=== PATIENT | male | born 1970 | race Caucasian/White ===

== ENCOUNTER 2024-04-19 00:49 | Outpatient (CLI) | payer BC, SELFPAY ==
[2024-04-19 12:47] LABS: ALT 44 U/L (16-63); AST 34 U/L (15-37); Albumin 4.1 g/dL (3.4-5.0); Alkaline Phosphatase 76 U/L (46-116); Anion Gap 8.8 mmol/L (3-11); BUN 15 mg/dL (7-18); Bilirubin, Total 0.4 mg/dL (0.2-1.0); CO2 27.2 mmol/L (21.0-32.0); Calcium 9.1 mg/dL (8.5-10.1); Calculated LDL 90 mg/dL (<100); Chloride 100 mmol/L (98-107); Cholesterol 164 mg/dL (<200); Glucose 105 mg/dL (74-106); HDL Cholesterol 64 mg/dL (40-60); Potassium 4.5 mmol/L (3.5-5.1); Sodium 136 mmol/L (136-145); Total Protein 7.6 g/dL (6.4-8.2); Triglyceride 52 mg/dL (<150)
[2024-04-19 23:34] LABS: HIV-1/2 Ag & Ab Screen Negative (Negative)
[2024-04-20 09:40] LABS: Hepatitis C Ab w Rflx HCV PCR Negative (Negative)
== END 2024-04-19 00:50 | disposition home or self-care (01) ==
LOC: LBO 00:49
PROVIDERS: PCP Nurse Practitioner Family; Visit Provider Nurse Practitioner Family
DX: Z13.220 Encounter for screening for lipoid disorders (principal); Z11.4 Encounter for screening for human immunodeficiency virus [HIV]; Z11.59 Encounter for screening for other viral diseases
CPT/HCPCS: 80053; 80061; 86803; 87389

== ENCOUNTER 2024-07-16 09:33 | Day surgery (SDC) | payer BC, SELFPAY ==
[2024-07-16 09:54] VITALS: BP 120/77; PULSE 66; RESP 16; TEMP 36.3; O2SAT 97
[2024-07-16] MEDS: Lactated Ringers 1,000 ML 80 ML IV (10:05)
--- NOTE | 2024-07-16 11:00 | W.COLOREPORT ---
Date of service: 07/16/24 Time of Service: 11:00 Colonoscopy Report Procedure Description: PROCEDURES PERFORMED: 1. Colonoscopy with cold forceps polypectomy PREOPERATIVE DIAGNOSIS: Surveillance colonoscopy POSTOPERATIVE DIAGNOSIS: Colon polyp, grade 1 internal hemorrhoids SURGEON: Russel Nassar MD INDICATION for procedure: The patient is a 54-year-old man due for his first screening colonoscopy. No family history of colon cancer. No previous colonoscopy. No symptoms. FINDINGS: The terminal ileum was normal. A small polyp, 2-3 mm in size was removed from the transverse colon. No obvious diverticular disease. Minimal grade 1 internal hemorrhoids present. SURVEILLANCE interval/FOLLOW-UP: 3 - 10 years. If sessile serrate or villous histology, then in 3 years. Otherwise, 7-10 year followup is acceptable. SPECIMENS: yes EBL: Minimal COMPLICATIONS: None QUALITY of prep: Excellent Procedure in detail: The patient gave written consent and was in agreement with the indications, the potential risks as well as the benefits of the procedure. They were taken to the endoscopy suite and laid in the left lateral decubitus position. A timeout was performed and anesthesia was administered which was tolerated well. I started the procedure. Digital rectal and visual examination was performed and grossly within normal limits. A well-lubricated flexible colonoscope was then introduced and passed without any notable difficulty all the way to the cecum identified by the ileocecal valve and the appendiceal orifice. The terminal ileum was briefly intubated and appeared normal. The scope was then slowly withdrawn with the above-noted findings. The patient tolerated the procedure well and was taken to the PACU in hemodynamically stable condition.
--- NOTE | 2024-07-16 11:00 | W.PM.DSUDISC ---
Date of service: 07/16/24 Time of Service: 11:00 Discharge Plan Disposition Patient Disposition: Home Condition: Good Discharge Details Attending Provider: Ze Nassar Primary Care Provider: Deyvi Jonas Home Meds and New Rx's Prescriptions: No Action polyethylene glycol 3350 17 gram/dose powder 238 g PO ONCE Qty: 238 0RF Rx Instructions: take per colonoscopy instructions bisacodyl [Dulcolax (bisacodyl)] 5 mg tablet,delayed release (DR/EC) 5 mg PO ONCE Qty: 4 0RF Rx Instructions: take per colonoscopy instructions multivitamin Tablet 1 tab PO DAILY creatine monohydrate 5,000 mg powder in packet PO Discharge Instructions Additional Instructions: FINDINGS: A small polyp was found and removed today. It is nothing to worry about. This is why we do the colonoscopies. It will get tested in the lab and you will get called with those results in 1-2 weeks. Those results dictate when your next colonoscopy should be done. Mild hemorrhoid disease was found today. This is extremely common, benign and nothing needs to be done about it. Stand Alone Forms: Colonoscopy Post Instructions Activity:: Activity as Tolerated Diet:: As Tolerated
[2024-07-16 11:10] VITALS: BMI 37.5
--- NOTE | 2024-07-16 11:10 | W.ANESPRE ---
General Info Date of Service Date Performed: 07/16/24 Height: 5 ft Weight: 87.2 kg Body Mass Index (BMI): 37.5 Surgical Procedure: Operation Date: 07/16/24 10:50 Proposed Procedure Side Surgeon p Colonoscopy Ze Nassar MD Meds Allergies and Home Medications Allergies Allergy/AdvReac Type Severity Reaction Status Date / Time grass pollen Allergy Mild congestion Verified 07/16/24 09:53 ragweed pollen Allergy Mild congestion Verified 07/16/24 09:53 Home Medication ?Medication ?Instructions ?Recorded creatine monohydrate 5,000 mg oral mg PO 03/16/24 powder packet multivitamin 1 tab PO DAILY 03/16/24 bisacodyl 5 mg tablet,delayed 5 mg PO ONCE colonscopy bowel prep 06/26/24 release (Dulcolax (bisacodyl)) #4 tabs polyethylene glycol 3350 17 238 g PO ONCE colonoscopy prep 06/26/24 gram/dose oral powder #238 grams Current Visit Medications: Current Medications Generic Name Dose Route Start Last Admin Trade Name Nikki PRN Reason Stop Dose Admin Ringer's Solution 1,000 mls @ 80 mls/hr 07/16/24 06:00 07/16/24 10:05 IV 08/12/24 23:59 80 mls/hr INFUSION PERRY Administration IV Miscellaneous Supplies 1 each 07/16/24 06:00 Iv Access IV 08/12/24 23:59 DIRECTED PERRY Sodium Chloride 0 ml 07/16/24 06:00 Normal Saline Flush 10 Ml Syr IV 08/12/24 23:59 PRN PRN Sodium Chloride 0 ml 07/16/24 06:00 Normal Saline 10 Ml Vial IJ 08/12/24 23:59 DIRECTED PRN Sterile Water 0 ml 07/16/24 06:00 Water,Injection,Sterile 10 Ml Vial IJ 08/12/24 23:59 DIRECTED PRN PFSH Active Problems Active Problems: Problem Status Onset Code Pes planus of both feet Acute M21.41, M21.42 Medical History Medical History Asbestos exposure Skin cancer Surgical History Surgical History [place] teeth extracted Tobacco Smoking/Tobacco Use Status: Never Passive smoking exposure: Yes Second hand exposure: Yes Alcohol Alcohol Intake: current Alcohol intake frequency: a few times a month Alcohol type: beer, wine and hard liquor Substance Use Substance use: Never Substance use type: does not use Vital Signs and Lab Results Vital Signs Most Recent Vital Signs in EMR: Most Recent Vital Signs Temp Pulse Resp BP Pulse Ox 36.3 C L 66 16 120/77 97 07/16/24 09:54 07/16/24 09:54 07/16/24 09:54 07/16/24 09:54 07/16/24 09:54 Lab Results Blood Type / Crossmatch: No Data to Display Complete Blood Count: No Data to Display Complete Metabolic Panel: No Data to Display Liver Function Panel: No Data to Display Coagulation Panel: No Data to Display Cardiac Panel: No Data to Display Arterial Blood Gas: No Data to Display Venous Blood Gas: No Data to Display Pancreas Panel: No Data to Display Thyroid Panel: No Data to Display Infectious Disease: No Data to Display Blood Cultures: No Data to Display Toxicology Panel: No Data to Display Anesthesia Assessment and Plan Anesthesia History Personal History: No History of Anesthesia Complications Family History: No Family History of Anesthesia Complications Exercise Tolerance Exercise Tolerance: Metabolic Equivalents>4 Pertinent Negatives Pertinent Negatives: No Symptoms of GERD, No Major Cardiovascular Symptoms or Complaints and No Major Pulmonary Symptoms or Complaints Cardiac & Pulmonary Exam Cardiac Exam: Normal S1/S2 Heart Sounds Pulmonary Exam: Clear Bilateral Breath Sounds Implantable Cardiac Device Does patient have a Pacemaker or an ICD?: No Airway Exam Known Difficult Airway: No Mallampati Class: 3 Mouth Opening: Normal (> 3cm) Thyromental Distance: Greater than 3 cm Facial Hair: Full [place] Neck Range of Motion: Full ROM Neck Circumference: Thick Teeth Condition: Normal Dentition ASA Classification ASA Score: ASA 2 Emergency Case?: No NPO Status NPO Status: NPO Clears >2 hours, Solids >8 hours Anesthesia Plan Resuscitation Status: Full Code Anesthesia Technique: General Anesthesia Airway Planned: Natural Airway Monitors Used: Standard Monitors
--- NOTE | 2024-07-16 11:33 | BOWEL_PTH ---
PATIENT: Ryan Amanda LOC: [facility] U#:[id number] AGE/SX: 54/M ROOM: RE07/16/[address]: Ze Nassar : 1970 BED: DIS: 07/16/2024 SPEC #: [id number] RECD: 07/16/24 13:02 STATUS: [facility] #: [id number] [place]: 07/16/24 11:[address]: Ze Nassar DEPT: Surgical Specimen RECD BY: Birgit Pruett ENTERED: 07/16/24 13:03 SP TYPE: Bowel OTHR DR: Deyvi Eason DNP Tissues: 1 - BIOPSY BOWEL Procedures: GROSS AND MICRO LEVEL 4 Comments: [id number]
[2024-07-16 11:41] VITALS: BP 102/69; PULSE 77; RESP 16; TEMP 36.4; O2SAT 99
--- NOTE | 2024-07-16 11:51 | W.ANESPOSTOP ---
Postoperative Evaluation Date, Time and Location Date Performed: 07/16/24 Time Performed: 11:50 Patient Location: Day Surgery Unit Vital Signs Most Recent Imported Vital Signs: Most Recent Vital Signs Temp Pulse Resp BP Pulse Ox 36.3 C L 66 16 120/77 97 07/16/24 09:54 07/16/24 09:54 07/16/24 09:54 07/16/24 09:54 07/16/24 09:54 Pain Score Most Recent Pain Score: Most Recent Pain Score Pain Level 0 07/16/24 09:54 Assessment Mental Status: Awake (Alert & Oriented to Patient Baseline) Airway and Respiratory Function: Patent airway with normal (patient baseline) respiratory exam Cardiovascular Function: Hemodynamically Stable Hydration Status: Adequately Hydrated Nausea & Vomiting: No Nausea or Vomiting Pain: Pt. Denies Any Pain Peripheral Nerve Block: Patient did not receive a nerve block
[2024-07-16 12:12] VITALS: BP 99/71; PULSE 59; RESP 16; TEMP 36.4; O2SAT 97
== END 2024-07-16 12:53 | disposition home or self-care (01) ==
PROVIDERS: PCP Nurse Practitioner Family; Visit Provider Student in an Organized Health Care Education/Training Program
PROC: 0DJD8ZZ Inspection of Lower Intestinal Tract, Via Natural or Artificial Opening Endoscopic (ICD-10-PCS; CPT 45378; principal; 2024-07-16 10:45)
DX: Z12.11 Encounter for screening for malignant neoplasm of colon (principal); D12.3 Benign neoplasm of transverse colon; K64.0 First degree hemorrhoids
CPT/HCPCS: 45380; 00123; 88305; J2001; J2704

== ENCOUNTER 2025-04-17 05:01 | Outpatient (CLI) | payer OTHER, SELFPAY ==
[2025-04-23 16:21] LABS: Apolipoprotein B, Serum 71 mg/dL; Beta VLDL Cholesterol Not Detected mg/dL (<15); Beta VLDL Triglycerides Not Detected mg/dL (<15); Cholesterol, Total, CDC 165 mg/dL; Chylomicron Cholesterol Not Detected; Chylomicron Triglycerides Not Detected; HDL Cholesterol, CDC 52 mg/dL (>=40); LDL Cholesterol 79 mg/dL; LDL Triglycerides 22 mg/dL (<=50); Lp(a) Cholesterol 21 mg/dL (<5); LpX Not detected; Triglycerides, CDC 59 mg/dL; VLDL Cholesterol 13 mg/dL (<30); VLDL Triglycerides 22 mg/dL (<120)
== END 2025-04-17 05:02 | disposition home or self-care (01) ==
LOC: LBO 05:01
PROVIDERS: PCP Nurse Practitioner Family; Visit Provider Nurse Practitioner Family
DX: Z82.49 Family history of ischemic heart disease and other diseases of the circulatory system (principal); Z13.6 Encounter for screening for cardiovascular disorders
CPT/HCPCS: 36415; 80061; 82172; 82664

== ENCOUNTER 2025-04-17 14:42 | Outpatient (CLI) | payer OTHER, SELFPAY ==
--- NOTE | 2025-04-17 14:45 | DI.RAD_ITS ---
Exam(s) XR SHOULDER RT COMPLETE 2+V EXAM: XR SHOULDER RT COMPLETE 2+V CLINICAL HISTORY: RIGHT SHOULDER PAIN. TECHNIQUE: 2D digital imaging was performed of the right shoulder. Two images were obtained. Grash ey and axillary views were obtained. COMPARISON: No exams were available for comparison FINDINGS: BONES: No acute fracture is present. No bony destructive lesion is seen. JOINTS: No dislocation present. There are degenerative changes seen at the glenohumeral joint charact erized by joint space narrowing and osteophytes. The acromioclavicular joint appears well maintained . SOFT TISSUE: Normal. 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 DATA REPOSITORY: RADIATION DOSE DELIVERED:
== END 2025-04-17 14:43 | disposition home or self-care (01) ==
LOC: DIORS 14:43
PROVIDERS: PCP Nurse Practitioner Family; Referring Provider Nurse Practitioner Family; Visit Provider Student in an Organized Health Care Education/Training Program
DX: S43.431A Superior glenoid labrum lesion of right shoulder, initial encounter (principal); M19.112 Post-traumatic osteoarthritis, left shoulder
CPT/HCPCS: 73030

== ENCOUNTER 2025-05-08 02:30 | Outpatient (CLI) | payer OTHER, SELFPAY ==
--- NOTE | 2025-05-08 07:45 | DI.MRI_ITS ---
Exam(s) MR UPPER JOINT RT WO EXAM: MR UPPER JOINT RT WO CLINICAL HISTORY: R SHOULDER PAIN,SLAP TEAR,[id number] TECHNIQUE: Multiplanar multisequence MRI of the shoulder was performed. COMPARISON: CR XR SHOULDER RT COMPLETE 2+V from 04/17/2025 FINDINGS: MARROW:There is no evidence of fracture, Hill-Sachs deformity, nor ominous osseous lesions. GLENOHUMERAL JOINT: There are degenerative changes in glenohumeral joint with moderate loss of articular cartilage and small posing osteophytes on the inferior articular surfaces of the humeral head and osseous glenoid and there are multiple subarticular degenerative cysts in the lower half of the osseous glenoid. There are no degenerative subarticular cysts in the humeral head. There is no prominent joint effusion nor obvious loose intra-articular bodies. ROTATOR CUFF MECHANISM: AC JOINT/ACROMIUM: There are moderate degenerative changes in the AC joint. There is hypertrophied under surface tissue. Also mild bone edema on both sides of this articulation.. There is no evidence of os acromiale. Supraspinatus: Some tendinitis signal. No full-thickness tear. No muscle atrophy. Infraspinatus: Mild insertional tendinitis. No high-grade tear. No muscle atrophy. Teres Minor: Intact. No evidence of tear nor muscle atrophy. Subscapularis/anterior cuff: Mild insertional tendinitis. No high-grade tear. No atrophy. BICEPS TENDON: Exhibits normal position within the intertubercular groove. No evidence of tear. LABRUM: Mild increased signal evident in the superior labrum posterior to the biceps insertion site. Posterior labrum appears intact. Some tearing is evident in the anterior labrum. Some irregularity also evident in the inferior labrum. The inferior glenohumeral ligament appears intact. No evidence of paralabral cyst. QUADRILATERAL SPACE: No evidence of mass in the region of the axillary nerve and dorsal circumflex humeral vessels. Visualized triceps muscle at this level appears unremarkable. IMPRESSION: 1. There are moderate-advanced osteoarthritic degenerative changes in the glenohumeral joint. No prominent joint effusion or loose intra-articular bodies evident. In addition to small opposing osteophytes on the inferior articular surfaces of the humeral head and osseous glenoid there also multiple d egenerative subarticular cysts And bone edema in the inferior half of the osseous glenoid. Moderate degenerative changes are noted in the acromioclavicular joint. 2. There appears to be some labral tearing anteriorly and superiorly. Biceps tendon appears intact. 3. There is element of tendinitis in the supraspinatus, infraspinatus and teres minor but no full-thickness tears. Also no muscle atrophy. DATA REPOSITORY:
== END 2025-05-08 02:50 ==
LOC: DI 02:30
PROVIDERS: PCP Nurse Practitioner Family; Visit Provider Student in an Organized Health Care Education/Training Program
DX: S43.431D Superior glenoid labrum lesion of right shoulder, subsequent encounter (principal); X58.XXXD Exposure to other specified factors, subsequent encounter
CPT/HCPCS: 73221

== ENCOUNTER 2025-07-31 04:12 | Outpatient (CLI) | payer OTHER, SELFPAY ==
[2025-08-06 08:39] LABS: Apolipoprotein B, Serum 73 mg/dL; Beta VLDL Cholesterol Not Detected mg/dL (<15); Beta VLDL Triglycerides Not Detected mg/dL (<15); Cholesterol, Total, CDC 175 mg/dL; Chylomicron Cholesterol Not Detected; Chylomicron Triglycerides Not Detected; HDL Cholesterol, CDC 59 mg/dL (>=40); LpX Not detected; Triglycerides, CDC 52 mg/dL; VLDL Triglycerides 19 mg/dL (<120)
== END 2025-07-31 04:13 | disposition home or self-care (01) ==
PROVIDERS: PCP Nurse Practitioner Family; Visit Provider Nurse Practitioner Family
DX: I25.10 Atherosclerotic heart disease of native coronary artery without angina pectoris (principal); E78.5 Hyperlipidemia, unspecified
CPT/HCPCS: 36415; 80061; 83695; 82172; 82664